=== PATIENT | male | born 1980 | race Caucasian/White ===

== ENCOUNTER 2018-08-02 15:04 | Outpatient (CLI) | payer OTHER | END 2018-08-02 15:05 | disposition home or self-care (01) | LOC: SC 15:04 | PROVIDERS: ATTEND Nurse Practitioner Family | DX: G47.33 Obstructive sleep apnea (adult) (pediatric) (principal); G25.81 Restless legs syndrome; E66.9 Obesity, unspecified; Z68.33 Body mass index [BMI] 33.0-33.9, adult | CPT/HCPCS: 99204; 99212 ==

== ENCOUNTER 2018-09-02 06:01 | Day surgery (SDC) | payer OTHER ==
[2018-09-02] MEDS ORDERED: ceFAZolin 2 GM/50 ML 2 GM/50 ML BAG IV ONE (06:30)
[2018-09-02] MEDS ORDERED: LACTATED RINGERS 1,000 ML IV ONE (06:30)
--- NOTE | 2018-09-02 07:02 | ANESTHESIA ---
Pre-Anesthesia VS, & Labs - Diagnosis right carpal tunnel syndrome - Procedure right carpal tunnel release Vital Signs: Temp Pulse Resp BP Pulse Ox 36.6 C 86 18 135/86 H 97 09/02/18 06:41 09/02/18 06:41 09/02/18 06:41 09/02/18 06:41 09/02/18 06:41 Height 5 ft 5 in Weight (kg) 94.6 kg - NPO >8 hours Home Medications and Allergies Home Medications: Ambulatory Orders Loratadine [Claritin] 10 mg PO DAILY 08/29/18 Sertraline HCl [Zoloft] 100 mg PO DAILY 08/29/18 Loratadine [Claritin] 10 mg PO DAILY 08/29/18 Sertraline HCl [Zoloft] 100 mg PO DAILY 08/29/18 Allergies/Adverse Reactions: Allergies Allergy/AdvReac Type Severity Reaction Status Date / Time No Known Drug Allergies Allergy Verified 08/29/18 12:32 Anes History & Medical History - Anesthetic History Anesthesia Complications: reports: No previous complications Family history of Anesthesia Complications: Denies Family history of Malignant Hyperthermia: Denies - Medical History Cardiovascular: reports: None Pulmonary: reports: Sleep apnea Gastrointestinal: reports: None Urinary: reports: None Musculoskeletal: reports: Other Skin: reports: None - Surgical History General: Cholecystectomy Exam General: Alert Dental: WNL Mouth Openin Fingerbreadth Neck Mobility: Normal Mallampati classification: II Thyromental Distance: greater than 6 cm Respiratory: Lungs clear, Normal breath sounds, No respiratory distress, No accessory muscle use Cardiovascular: Regular rate, Normal S1, Normal S2, No murmurs Mental/Cognitive Status: Alert/Oriented X3, Normal for patient Cognitive Status: Within normal limits Plan Anesthesia Type: General Consent for Procedure(s) Verified and Reviewed: Yes Code Status: Attempt Resuscitation ASA classification: 2-Mild systemic disease Is this case an emergency?: No
[2018-09-02] MEDS ORDERED: BUPIVACAINE 0.25% PF 30 ML VIAL ONE (07:31)
[2018-09-02] MEDS ORDERED: BUPIVACAINE 0.25% PF 30 ML VIAL SUBQ ONE ×2 (08:03)
[2018-09-02] MEDS ORDERED: ONDANSETRON 4 MG/2 ML VIAL IVP PRN (08:43)
[2018-09-02] MEDS ORDERED: HYDROmorphone 0.5 MG/0.5 ML SYRINGE IVP PRN (08:43)
[2018-09-02] MEDS ORDERED: HYDROcod/ACETAM 5/325 MG TABLET PO PRN (08:43)
--- NOTE | 2018-09-02 08:59 | OPERATIVE REPORT ---
Operative Report - General Procedure Date: 09/02/18 Planned Procedure: Right open carpal tunnel release Pre-Op Diagnosis: Right carpal tunnel syndrome Procedure Performed: Right open carpal tunnel release Post Op Diagnosis: Right carpal tunnel syndrome - Procedure Note Primary Surgeon: Garrett Mcgregor MD Secondary Surgeon: Taqueria Melgar MD Anesthesia Technique: General LMA Estimated Blood Loss (mL): 5 - Other Other Information/Narrative: Tourniquet time: 19 minutes at 250 mmHg Findings: Thickened transverse carpal ligament Complications: None Implants: None Indication for surgery: This is a 38-year-old qnsik-arir-kunyzdyb male who experienced approximately 4 months of increasing right hand pain and numbness in a median nerve distribution pain and numbness were worse on the radial side of the ring finger, the long finger with lesser involvement of the index finger and the thumb. His symptoms began following a cross country PCS from [facility] to the [facility]. 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 He was treated by his PCP in late May with a steroid Dosepak, which provided decent relief relief of symptoms, however his symptoms returned shortly after discontinuation of the steroid medication. He reported night pain. He had an EMG/NCS that demonstrated a letter diagnostic findings consistent with bilateral carpal tunnel syndrome. We discussed nonoperative treatment, consisting of night splints, as well as cortical steroid injection into the carpal tunnel, and open carpal tunnel release. We discussed the risks benefits and alternatives to surgery. Risks include failure to relieve symptoms, bleeding, infection, damage to nerves, (recurrent motor branch to the thenar muscles, palmar cutaneous branch of the median and ulnar nerves, the ulnar nerve proper), blood vessels, tendons, blood clot to include DVT and pulmonary embolus, risks of anesthesia, heart attack, stroke, . After long discussion he wished to proceed. Informed consent was signed. Description of procedure: On the morning of surgery the patient was met in the preoperative holding area, informed consent was verified, patient identity was confirmed using 2 identifiers. Initial the operative site. And verified that the history and physical was current. The patient was then turned over to anesthesia, and transported to the operative room. He was transferred to the operative table supine with a right upper extremity on a hand table. A nonsterile tourniquet was placed high on the right brachium. The right arm was prepped and draped in usual sterile fashion. Following draping of surgical timeout was conducted whereby we confirmed the correct patient procedure and location as well as preoperative antibiotics and all equipment. The right upper extremity was then examination with an Esmarch bandage and the tourniquet was raised to 250 mmHg. Approximately 2.5 cm incision was made longitudinally distal to the wrist crease in line with the ulnar border of the flexed ring finger. Subcutaneous tissue was dissected sharply and retracted ulnarly, to the level of the palmar fascia. This palmar fascia was sharply incised, revealing the transverse carpal ligament. The transverse carpal ligament was sharply incised, revealing the contents of the carpal tunnel. The transverse carpal ligament was released proximally, with release of approximately 2 cm of the antebrachial fascia, and then distally until the fat surrounding the superficial palmar arch was seen. The extent of the incision was probed, and found to be free of any constrictive bands. Wound was copiously irrigated. The tourniquet was let down. Hemostasis was ensured using bipolar electrocautery. The wound was then closed using 4-0 Prolene in interrupted horizontal mattress fashion. 10 mL's of 0.25% Marcaine were injected into the lyndon-incisional soft tissue. The wound was dressed with Xeroform, 4 x 4 gauze, web roll, and a volar plaster splint splint was placed. Anesthesia was reversed and the patient transferred back to the hospital but bed and taken to the postoperative recovery area in stable condition. Postoperative plan: Splint and elevate Splint to be taken down at first postop visit in approximately 10 days. We will begin gentle range of motion of the wrist following splint removal.
[2018-09-02 09:36] VITALS: BP 120/82
== END 2018-09-02 06:02 | disposition home or self-care (01) ==
LOC: SDS 06:01
PROVIDERS: ATTEND Orthopaedic Surgery
PROC: 01N50ZZ Release Median Nerve, Open Approach (ICD-10-PCS; principal; 2018-09-02 07:30)
DX: G56.01 Carpal tunnel syndrome, right upper limb (principal); G47.30 Sleep apnea, unspecified; F41.8 Other specified anxiety disorders; Z79.891 Long term (current) use of opiate analgesic
CPT/HCPCS: 64721; J0690; J7120

== ENCOUNTER 2018-09-21 15:42 | Outpatient (CLI) | payer OTHER | END 2018-09-21 15:43 | disposition home or self-care (01) | LOC: SC 15:42 | PROVIDERS: ATTEND Nurse Practitioner Family | DX: G47.33 Obstructive sleep apnea (adult) (pediatric) (principal) | CPT/HCPCS: 99212; 99214 ==

== ENCOUNTER 2019-10-24 15:35 | Outpatient (CLI) | payer OTHER ==
[2019-10-24 16:42] VITALS: BP 120/84
--- NOTE | 2019-10-24 16:42 | SLEEP CARE CONSULTATION ---
Information from patient questionnaire entered by Josette Christian. I have reviewed and concur with the information entered by Josette Christian. This document represents the service I personally performed and the decisions made by me, Violetta Marsh, RN, MSN, BODY SERVICE TEAM MEMBER. History of Present Illness Previous diagnosis: Mild, Obstructive Sleep Apnea-Hypopnea Syndrome AHI: 6 Reason for follow up: annual (last seen 2018) Equipment type: CPAP Equipment obtained from: [employer] Mask style: Nasal pillows Mask brand: Resmed Backup mask available: Yes Last cushion change: 3 weeks ago CPAP Compliance Data - Data Reviewed with Patient Average duration of nightly device use: 7.5 Compliance rate %: 94 (180 days) Current pressure setting (cmH2O): 5-15 Humidity settin Average residual AHI: 3.5 Average large leak: 8.5 liters per minute Subjective Missed days of use due to: reports: illness Patient concerns: denies: aerophagia, mask discomfort, air blowing in eyes, mask leak noise, condensation in mask/hose, nasal congestion, dry mouth, nose, throat, epistaxis Observed to snore while using device: No Current pressure setting perceived as: comfortable On therapy, patient: reports: sleeping better, awakening more refreshed, being more awake and alert during the day, more rested overall. denies: drowsiness while driving Initial [place] Sleepiness Scale score: 9 Current [place] Sleepiness Scale score: 7 Allergies and Home Medications Known drug allergies: No Home medication list reviewed: Yes Allergy and home medication list: Sertraline 100mg daily loratadine 10mg daily Review of Systems Review of systems same as previous: Yes Physical Exam Blood Pressure: 120/84 Cuff size: long Heart Rate: 66 O2 Saturation: 98 Height: 5 ft 5.5 in Weight: 229 lb 12.8 oz Body Mass Index: 37.6 BMI Classification: Obesity Class 2 Impression and Plan 1. Obstructive Sleep Apnea-Hypopnea Syndrome, mild , with good treatment compliance and good apnea control. On CPAP therapy, the patient has better sleep quality and is more rested overall. However, there have been intermittent periods of higher apnea range for unknown reason. Patient denies taking alcohol, pain med or musle relaxant that could contribute to elevation. Thus with his weight gain, I will adjust his autoCPAP to [id number] to see if any better. I also discussed how his weight gain could increase apnea risk and pressure requirement and overall health risks. Thus he is advised to lose weight with reducing portions, health content and tracking intake. If not able to get to his weight loss goal to discuss with PCP to see if diet consultation would be helpful. There are also programs such as weight watchers that can be helpful. Patient's apnea severity and rationale for treatment to reduce apnea, improve sleep quality and reduce cardiovascular and cerebrovascular events was reviewed. I also reviewed the benefit of consistent device use of CPAP for depression/anxiety. * * Change CPAP pressure to 8-15 cmH2O * Notify me if snoring with mask or feeling that the pressure is too much or too little * Attempt to lose weight * Call this office if any problems using CPAP * Return for follow up in 1 year , or sooner if concerns arise Time Spent with Patient (minutes): 25 I spent 100% of this visit face to face with the patient with greater than 50% of this was spent time counseling the patient and coordination of care.
== END 2019-10-24 15:36 | disposition home or self-care (01) ==
LOC: SC 15:35
PROVIDERS: ATTEND Nurse Practitioner Family
DX: G47.33 Obstructive sleep apnea (adult) (pediatric) (principal); E66.9 Obesity, unspecified; Z68.37 Body mass index [BMI] 37.0-37.9, adult
CPT/HCPCS: 99212; 99214

== ENCOUNTER 2020-07-17 19:43 | Emergency (ER) | payer OTHER ==
[2020-07-17 19:48] VITALS: BP 127/85
--- NOTE | 2020-07-17 20:12 | ED Physician Documentation ---
PD HPI SKIN - Stated complaint Stated Complaint: FINGER LAC - Chief complaint Chief Complaint: Laceration - History obtained from History obtained from: Patient - Additional information Additional information: pt was taking out the trash and pushed down to pack the bag in and cut his right small finger on a tin can lid. cleaned and dressed at home by who is an RN. pt unsure of last td but believes it was within the past 5 years. normal movement and sensation of the finge.r PD PAST MEDICAL HISTORY - Past Medical History Cardiovascular: None Respiratory: Sleep apnea, CPAP use Neuro: None Endocrine/Autoimmune: None GI: GERD : None HEENT: None Psych: Depression Musculoskeletal: None, Other Derm: None - Past Surgical History General: Cholecystectomy Ortho: Carpal Tunnel surgery - Present Medications Home Medications: Ambulatory Orders Medication Instructions Recorded Confirmed Sertraline HCl [Zoloft] 100 mg PO DAILY 08/29/18 09/02/18 Omeprazole 40 mg PO 03/26/20 - Allergies Allergies/Adverse Reactions: Allergies Allergy/AdvReac Type Severity Reaction Status Date / Time No Known Drug Allergies Allergy Verified 03/26/20 13:23 PD ED PE NORMAL - Vitals Vital signs reviewed: Yes - General General: Alert and oriented X 3, No acute distress, Well developed/nourished - Derm Derm: Normal color, Warm and dry, No rash, Other (1.5cm lac palmar surface right small finger, mid) - Extremities Extremities: No deformity, No tenderness to palpate, Normal ROM s pain, No edema - Neuro Neuro: Alert and oriented X 3 Eye Opening: Spontaneous Motor: Obeys Commands Verbal: Oriented GCS Score: 15 - Psych Psych: Normal mood, Normal affect Results - Vitals Vitals: Vital Signs - 24 hr 07/17/20 19:44 Temperature 2.3 C L Heart Rate 55 L Respiratory 16 Rate Blood Pressure 127/85 H O2 Saturation 96 Oxygen O2 Source Room air Procedures - Laceration (location) Hand right Palmar Length in cm: 1.5 Wound type: Linear Neurovascular status: Sensory intact, Motor intact, Vascular intact Tendon involvement: Tendon intact Anesthesia: Lidocaine 1% Wound Preparation: Irrigated copiously NS Skin layer closure: Nylon, Interrupted, Sutures - enter # (5) Other: Patient tolerated well, No complications, Neurovascular intact, Dressing applied, Tetanus UTD Complexity: Simple PD MEDICAL DECISION MAKING - ED course Complexity details: d/w patient ED course: Pt sustained small lac to right small finger. offered glue vs dressing vs sutures and pt elected for sutures. obtained informed verbal consent. site cleaned and closed w/ five #4.0 interrupted sutures. covered w/ dressing. tolerated well. pt to have sutures removed in 7-10 days. return precautions reviewed w/ pt. Departure - Departure Disposition: 01 Home, Self Care Clinical Impression: Laceration Condition: Good Instructions: ED Laceration Hand Comments: Please have sutures removed in 7-10 days. Return at anytime if signs of infection. Discharge Date/Time: 07/17/20 20:28
== END 2020-07-17 20:28 | disposition home or self-care (01) ==
LOC: ED 19:43
DX: S61.216A Laceration without foreign body of right little finger without damage to nail, initial encounter (principal); W26.8XXA Contact with other sharp object(s), not elsewhere classified, initial encounter; Y93.E9 Activity, other interior property and clothing maintenance
CPT/HCPCS: 12001; 99281; 99282

== ENCOUNTER 2020-10-16 16:46 | Outpatient (CLI) | payer OTHER ==
--- NOTE | 2020-10-16 13:57 | SLEEP CARE CONSULTATION ---
Information from patient questionnaire entered by Josette Christian. I have reviewed and concur with the information entered by Josette Christian. This document represents the service I personally performed and the decisions made by me, Violetta Marsh, RN, MSN, L[employer]END[employer] WORKER. History of Present Illness Service Date and Time: 10/16/2020 1330 Previous diagnosis: Mild, Obstructive Sleep Apnea-Hypopnea Syndrome AHI: 6 (in 2013) Reason for follow up: annual (last seen 09/2019) Equipment type: CPAP Equipment obtained from: Other ([employer] - gets supplies as neede) Mask style: Nasal pillows Backup mask available: Yes (old mask ) Last cushion change: a week ago Prior sleep studies: Yes Year and Where: 2013 - [facility] in [facility] additional information: Previous annual visit reviewed in preparation for appointment. The autoCPAP pressure was not changed as ordered. CPAP Compliance Data - Data Reviewed with Patient Average duration of nightly device use: 7 hr 4 min Compliance rate %: 91.1 (180 days) Current pressure setting (cmH2O): 5-15 Humidity settin Average residual AHI: 2.9 Subjective Patient concerns: reports: condensation in mask/hose (rare a few times a year). denies: aerophagia, mask discomfort, air blowing in eyes, mask leak noise, nasal congestion, dry mouth, nose, throat, epistaxis Observed to snore while using device: No Current pressure setting perceived as: comfortable On therapy, patient: reports: sleeping better, awakening more refreshed, being more awake and alert during the day, more rested overall. denies: drowsiness while driving Initial [place] Sleepiness Scale score: 9 (in 2018) Current [place] Sleepiness Scale score: 3 Allergies and Home Medications Known drug allergies: No Home medication list reviewed: Yes Allergy and home medication list: Zoloft 100mg daily Aciphex 20mg daily Ropinerol 3mg daily Review of Systems Review of systems same as previous: Yes Physical Exam Height: 5 ft 5 in Weight: 220 lb Body Mass Index: 36.6 BMI Classification: Obese Impression and Plan 1. Obstructive Sleep Apnea-Hypopnea Syndrome, mild, with good treatment compliance and good apnea control. On CPAP therapy, the patient has better sleep quality and is more rested overall. Patient is pleased with benefit of CPAP treatment. Currently patients BMI is 37.8 obesity class . I reviewed how obesity increases the risk of apnea, CPAP pressure requirements and overall health risks especially cardiovascular and diabetes. Thus patient is advised to lose weight. Weight loss can be done with reducing portion size, reducing refined foods and balancing content with vegetables, fruit and protein. Patient encouraged to discuss their weight loss goals with their PCP and consider a referral to a porcelain mixer. The patient's CPAP pressure range should accommodate some weight loss. Symptoms to report for additional pressure adjustment discussed. Patient's apnea severity and rationale for treatment to reduce apnea, improve sleep quality and reduce cardiovascular and cerebrovascular events was reviewed. I also reviewed the benefit of consistent device use of CPAP for depression/anxiety. 2. Restless leg syndrome, currently managed by his PCM and treated with Ropinerol nightly. Patient reports difficulty sleeping about 1-2 times a month when symptoms exacerbate. No trigger is noted. He is advised to consider an Epsom salt bath at this time. If symptoms increase, he should follow up with PCM for medication modification and to check if iron deficiency with rationale discussed. Patient agreed with plan. * Continue auto CPAP pressure at 5-15 cmH2O * Notify me if snoring with mask or feeling that the pressure is too much or too little * Attempt to lose weight * Follow up with PCP for referral to porcelain mixer * Call this office if any problems using CPAP * Return for follow up in 1 year , or sooner if concerns arise Counseling Topics: Weight loss health impact, Discuss weight with PCP Visit Type: Telehealth Video Video Type: Doximity Patient Location: Home Location of Provider: Home Patient agrees and consents to this telehealth visit type: Yes Patient agrees to have their insurance billed: Yes Time Spent with Patient (minutes): 16 Provider Statement: I spent 100% of the Telehealth Video Call with the patient with greater than 50% spent counseling the patient and coordination of care.
== END 2020-10-16 16:47 | disposition home or self-care (01) ==
LOC: SC 16:46
PROVIDERS: ATTEND Nurse Practitioner Family
DX: G47.33 Obstructive sleep apnea (adult) (pediatric) (principal); G25.81 Restless legs syndrome; E66.9 Obesity, unspecified; Z68.36 Body mass index [BMI] 36.0-36.9, adult

== ENCOUNTER 2021-12-12 08:35 | Outpatient (CLI) | payer OTHER ==
[2021-12-12 09:01] VITALS: BP 153/76
--- NOTE | 2021-12-12 09:01 | SLEEP CARE CONSULTATION ---
Information from patient questionnaire entered by Rachel Daniels MA. I have reviewed and concur with the information entered by Rachel Daniels MA. This document represents the service I personally performed and the decisions made by , Sera Olguin ARNP. History of Present Illness Service Date and Time: 12/12/2021 0835 Previous diagnosis: Mild, Obstructive Sleep Apnea-Hypopnea Syndrome AHI: 6 (in 2013) Reason for follow up: annual (LAST SEEN 09/2020) Equipment type: CPAP Equipment obtained from: Other ([employer] - getting supplies as needed) Mask style: Nasal pillows Backup mask available: Yes (old mask) Last cushion change: last week Prior sleep studies: Yes Year and Where: [address] [place] [address] HPI additional information: DOMINIQUE RAMOS was diagnosed to have mild, AHI 6, obstructive sleep apnea-hypopnea syndrome and returned today for CPAP therapy annual follow-up. Sleep Study - Results Prior sleep studies: Yes Year and Where: [address] [place] [address] CPAP Compliance Data - Data Reviewed with Patient Average duration of nightly device use: 7 hours 15 minutes Compliance rate %: 98 Current pressure setting (cmH2O): 5-15 Average residual AHI: 4.2 Central apnea: 2.4 Obstructive apnea: 1.1 Subjective Patient concerns: denies: aerophagia, mask discomfort, air blowing in eyes, mask leak noise, condensation in mask/hose, nasal congestion, dry mouth, nose, throat, epistaxis Observed to snore while using device: No Current pressure setting perceived as: comfortable On therapy, patient: reports: sleeping better, awakening more refreshed, being more awake and alert during the day, more rested overall. denies: drowsiness while driving Initial [place] Sleepiness Scale score: 9 (in 2018) Current [place] Sleepiness Scale score: 8 Allergies and Home Medications Drug allergies reviewed: Yes (NKDA) Home medication list reviewed: Yes Allergy and home medication list: Allergies No Known Drug Allergies Allergy (Verified 03/26/20 13:23) Medications: stopped Zoloft Started Wellbutrin Review of Systems Review of systems same as previous: Yes (no changes) Physical Exam Blood Pressure: 153/76 (right) Cuff size: wrist Heart Rate: 56 O2 Saturation: 96 Height: 5 ft 5 in Weight: 226 lb Weight change since last visit: 6 lb gain Body Mass Index: 37.5 BMI Classification: Obese Impression and Plan 1. Obstructive Sleep Apnea-Hypopnea Syndrome, mild, with good treatment compliance and good apnea control. On CPAP therapy, the patient has better sleep quality and is more rested overall. Is satisfied with current CPAP therapy and has significant improvement of his sleep apnea. He denies any problems with skin irritation, dry mouth, nasal congestion or epistaxis. Patient's apnea severity and rationale for treatment to reduce apnea, improve sleep quality and reduce cardiovascular and cerebrovascular events was reviewed. I also reviewed the benefit of consistent device use of CPAP for depression, anxiety and RLS. 2. Obesity, unspecified. Patient has gained weight. Currently patients BMI is 37.5. Patient is currently trying a diet that he obtained when he was looking into having bariatric surgery.This plan has been on hold due to the Covid pandemic. Obesity increases the risk of apnea, CPAP pressure requirements and overall health risks especially cardiovascular and diabetes. Thus patient is advised to continue to try to lose weight. Weight loss can be done with reducing portion size, reducing refined foods and balancing content with vegetables, fruit and whole grain foods. In addition, patient encouraged to get regular exercise. The patient's CPAP pressure range should accommodate some weight loss. Symptoms to report for additional pressure adjustment discussed. * Continue auto CPAP pressure at 5-15 cmH2O * Notify me if snoring with mask or feeling that the pressure is too much or too little * Continue to try to lose weight * Call this office if any problems using CPAP * Return for follow up in 1 year, or sooner if concerns arise Counseling Topics: Spare mask, Weight loss health impact Visit Type: In Office Time Spent with Patient (minutes): 14 Provider Statement: I spent 100% of the Face to Face Visit with the patient with greater than 50% spent counseling the patient and coordination of care.
== END 2021-12-12 08:36 | disposition home or self-care (01) ==
LOC: SC 08:35
PROVIDERS: ATTEND Nurse Practitioner Family
DX: G47.33 Obstructive sleep apnea (adult) (pediatric) (principal); E66.9 Obesity, unspecified; Z68.37 Body mass index [BMI] 37.0-37.9, adult
CPT/HCPCS: 99212

== ENCOUNTER 2021-12-27 14:20 | Emergency (ER) | payer OTHER ==
--- NOTE | 2021-12-27 14:27 | ED Physician Documentation ---
PD HPI LOWER EXT INJURY - Stated complaint Stated Complaint: RT CALF PX - Chief complaint Chief Complaint: Back Pain - History obtained from History obtained from: Patient - History of Present Illness PD HPI LOW EXT INJURY LOCATION: Right, Calf Type of injury: No: Fall, Twist Where injury occurred: Home (onset of right calf pain last night during night, associated with his "restless legs", but cramping pain has persisted through day today. Pain with movement and walking. No edema of lower leg. No numbness in foot.) Timing - onset: Today, Last night Timing - duration: Hours Timing - details: Gradual onset, Still present, Waxing and waning (has not gone away with stretching, warm soak, rest, elevation.) Improved by: No: Rest Worsened by: Moving, Palpating (right upper lateral calf.) Associated symptoms: No: Weakness, Numbness, Swelling, Discolored Contributing factors: No: Anticoagulated Similar symptoms before: No diagnosis (He has had intermittent muscle cramps during the night. He has restless legs at night as well. He has not had a "charley horse" last this long in the past. He denies pain with activity or working out in the recent past.) Recently seen: Not recently seen Review of Systems Constitutional: denies: Fever, Chills Nose: denies: Rhinorrhea / runny nose, Congestion Throat: denies: Sore throat Respiratory: denies: Cough Skin: denies: Rash, Lesions Musculoskeletal: denies: Extremity swelling Neurologic: denies: Focal weakness, Numbness PD PAST MEDICAL HISTORY - Past Medical History Cardiovascular: None Respiratory: Sleep apnea, CPAP use Neuro: None Endocrine/Autoimmune: None GI: GERD : None HEENT: None Psych: Depression Musculoskeletal: Other (restless legs) Derm: None - Past Surgical History General: Cholecystectomy Ortho: Carpal Tunnel surgery - Present Medications Home Medications: Ambulatory Orders Medication Instructions Recorded Confirmed Sertraline HCl [Zoloft] 100 mg PO DAILY 08/29/18 09/02/18 Omeprazole 40 mg PO 03/26/20 tiZANidine [Zanaflex] 4 mg PO Q8H PRN #25 tablet 12/27/21 - Allergies Allergies/Adverse Reactions: Allergies Allergy/AdvReac Type Severity Reaction Status Date / Time No Known Drug Allergies Allergy Verified 12/27/21 14:26 PD ED PE NORMAL - Vitals Vital signs reviewed: Yes - General General: Alert and oriented X 3, No acute distress, Well developed/nourished - Back Back: No CVA TTP, No spinal TTP - Derm Derm: Normal color, Warm and dry, No rash - Extremities Extremities: No tenderness to palpate, Normal ROM s pain, No edema, Other (He has tenderness in the right upper lateral calf muscle. No obvious softness nor firmness. Passive range of motion causes some pain in that area. Lower calf and Achilles are nontender. Normal pulses and capillary refill in the foot and toes.) - Neuro Neuro: Alert and oriented X 3, No motor deficit, No sensory deficit, Normal speech Results - Vitals Vitals: Vital Signs - 24 hr 12/27/21 12/27/21 14:22 16:28 Temperature 36.1 C L 36.7 C Heart Rate 55 L 78 Respiratory 16 17 Rate Blood Pressure 133/82 H 134/69 H O2 Saturation 98 99 Oxygen O2 Source Room air - Labs Labs: Laboratory Tests 12/27/21 14:54 Sodium 138 Potassium 4.1 Chloride 104 Carbon Dioxide 25 Anion Gap 9.0 BUN 22 H Creatinine 1.0 Estimated GFR (MDRD) 82 L Glucose 101 H Calcium 9.4 Magnesium 2.1 Total Bilirubin 1.2 H AST 22 ALT 36 Alkaline Phosphatase 48 Total Creatine Kinase 299 H Total Protein 7.6 Albumin 4.6 Globulin 3.0 Albumin/Globulin Ratio 1.5 Lipase 34 - Rads (name of study) duplex right leg Radiology: Prelim report reviewed, See rad report PD MEDICAL DECISION MAKING - ED course Complexity details: reviewed results, considered differential (No noted injury. No edema in the lower leg. No numbness or weakness. He does workout regularly without recent pains on activity or walking. Seems likely muscle cramp or spasm. However can get ultrasound to evaluate DVT. Blood tests for electrolytes. CK 2 evaluate for significant muscle breakd), d/w patient Departure - Departure Disposition: 01 Home, Self Care Clinical Impression: Right calf pain Condition: Stable Record reviewed to determine appropriate education?: Yes Instructions: ED Strain Muscle Ext Prescriptions: tiZANidine [Zanaflex] 4 mg PO Q8H PRN #25 tablet PRN Reason: Spasms Comments: Your ultrasound is normal without any signs of blood clots. They did not see any other structural abnormality such as a cyst or hematoma. Your electrolytes are good on blood testing. A blood test called this creatinine kinase is slightly elevated suggesting some mild muscle injury. It does not seem elevated enough nor your symptoms to suggest excess pressure in the calf (compartment syndrome). At this point we will presume a muscle strain with some inflammation. Use some anti-inflammatory such as ibuprofen 2-3 times daily with food for the next several days to week. Heat and stretching for the muscle. Add Tylenol every 4- 6 hours if needed for pain. You could also consider adding tizanidine muscle relaxant if you are getting a lot of cramps or spasms. Activity as tolerated. Recheck if not improved well over the next several days to week. Discharge Date/Time: 12/27/21 16:28
[2021-12-27] MEDS ORDERED: ACETAMINOPHEN 325 MG TABLET PO STA (14:39)
[2021-12-27] MEDS ORDERED: IBUPROFEN 800 MG TABLET PO STA (14:39)
[2021-12-27] MEDS ORDERED: methocarbamoL 500 MG TABLET PO STA (14:39)
[2021-12-27 15:11] LABS: ALBUMIN 4.6 g/dL (3.2-5.5); ALBUMIN/GLOBULIN RATIO 1.5 (1.0-2.2); BILIRUBIN,TOTAL 1.2 mg/dL (0.2-1.0); CALCIUM 9.4 mg/dL (8.5-10.3); MAGNESIUM 2.1 mg/dL (1.7-2.8); POTASSIUM 4.1 mmol/L (3.5-5.0); TOTAL PROTEIN 7.6 g/dL (6.7-8.2)
--- NOTE | 2021-12-27 16:17 | Ultrasound Report ---
PROCEDURE: Duplex Ext Veins Right INDICATIONS: calf pain today without provocation TECHNIQUE: Real-time imaging, as well as color and pulse Doppler interrogation, were performed of the lower extr emity deep veins from the inguinal ligament to the popliteal fossa. COMPARISON: None. FINDINGS: The deep veins are normally compressible, and free of intraluminal thrombus. Color and pu lse Doppler demonstrate normal phasic intraluminal flow. There is normal augmentation response to di stal compression maneuver. IMPRESSION: Negative right lower extremity duplex ultrasound for DVT. Reviewed by: Luis Enrique Davies MD on 12/27/2021 3:15 PM [facility] Approved by: Luis Enrique Davies MD on 12/27/2021 3:15 PM [facility] Station ID: [id number]
[2021-12-27 16:30] VITALS: BP 134/69
== END 2021-12-27 16:28 | disposition home or self-care (01) ==
LOC: ED 14:20
DX: M79.661 Pain in right lower leg (principal); G25.81 Restless legs syndrome
CPT/HCPCS: 36415; 80053; 82550; 83690; 83735; 93971; 99282; 99284; A9270

== ENCOUNTER 2022-05-18 06:48 | Emergency (ER) | payer OTHER ==
[2022-05-18 06:55] VITALS: BP 146/81
--- NOTE | 2022-05-18 07:03 | ED Physician Documentation ---
PD HPI MALE - Stated complaint Stated Complaint: PAIN/MALE - Chief complaint Chief Complaint: General - History obtained from History obtained from: Patient - History of Present Illness Timing - onset: How many days ago (2) Timing - duration: Days (2) Timing - details: Abrupt onset, Still present (though has gotten smaller today, but still uncomfortable to touch in the area.) Associated symptoms: Testiclar pain (lower left testicle started 2 days ago. No noted injury.). No: Dysuria, Urinary frequency, Genital sore / lesion PD HPI MALE CONTRIB FACTORS: Sexually active Similar symptoms before: Has not had sx before Recently seen: Clinic (had COVID mild symptoms 2 months ago.), Other (Telehealth consultation for diffuse itchy skin rash last week, for pruritic hives rash he has had without noted provocation. Rx clobetasole cream topical.) Review of Systems Constitutional: denies: Fever, Chills Nose: denies: Rhinorrhea / runny nose, Congestion Throat: denies: Sore throat Respiratory: denies: Cough : denies: Dysuria, Frequency, Discharge Skin: reports: Rash (hives/itching rash diffusely for a week. No change in foods, soaps, contacts, meds, etc.) PD PAST MEDICAL HISTORY - Past Medical History Cardiovascular: None Respiratory: Sleep apnea, CPAP use Neuro: None Endocrine/Autoimmune: None GI: GERD : None HEENT: None Psych: Depression Musculoskeletal: Other (restless legs) Derm: None - Past Surgical History General: Cholecystectomy Ortho: Carpal Tunnel surgery - Present Medications Home Medications: Ambulatory Orders Medication Instructions Recorded Confirmed Sertraline HCl [Zoloft] 100 mg PO DAILY 08/29/18 09/02/18 Omeprazole 40 mg PO 03/26/20 tiZANidine [Zanaflex] 4 mg PO Q8H PRN #25 tablet 12/27/21 Cetirizine [ZyrTEC] 10 mg PO BID #20 tablet 05/18/22 dexAMETHasone [Decadron] 4 mg PO DAILY #5 tablet 05/18/22 - Allergies Allergies/Adverse Reactions: Allergies Allergy/AdvReac Type Severity Reaction Status Date / Time No Known Drug Allergies Allergy Verified 05/18/22 06:55 - Social History Does the pt smoke?: No Smoking Status: Never smoker PD ED PE NORMAL - Vitals Vital signs reviewed: Yes - HEENT HEENT: Pharynx benign - Neck Neck: Supple, no meningeal sign, No adenopathy - Cardiac Cardiac: RRR, No murmur - Respiratory Respiratory: Clear bilaterally - Abdomen Abdomen: Soft, Non tender - Male Male : Other (no hernias. No inguinal adenopathy. ) - Rectal Rectal: Deferred - Back Back: No CVA TTP - Derm Derm: Warm and dry, Other (blotchy minimally raised/pebbly rash on torso/whole body. Nonvesicular. No purpura. ) PD ED PE EXPANDED - Male Male : Testes descended maci, Normal lie/cremastaric, Tenderness (mild tender lower pole of left testicle with slight fullness felt in the area. ). No: Skin lesions, Discharge, Testicular Mass (there is mild lump felt bilateral mid vas area c/w prior vasectomy. ) Results - Vitals Vitals: Vital Signs - 24 hr 05/18/22 06:53 Temperature 36.2 C L Heart Rate 64 Respiratory 18 Rate Blood Pressure 146/81 H O2 Saturation 96 Oxygen O2 Source Room air - Labs Labs: Laboratory Tests 05/18/22 07:29 Urine Color DARK YELLOW Urine Clarity CLEAR Urine pH 5.0 Ur Specific [place] >=1.030 H Urine Protein NEGATIVE Urine Glucose (UA) NEGATIVE Urine Ketones NEGATIVE Urine Occult Blood MODERATE H Urine Nitrite NEGATIVE Urine Bilirubin NEGATIVE Urine Urobilinogen 0.2 (NORMAL) Ur Leukocyte Esterase NEGATIVE Urine RBC 0-5 Urine WBC 0-3 Ur Squamous Epith Cells RARE Squamous Urine Bacteria Rare Ur Microscopic Review INDICATED Urine Culture Comments NOT INDICATED - Rads (name of study) testicle/scrotal US Radiology: Prelim report reviewed (Mild increased vascularity in the left testicle and epididymal area. No obvious structural abnormality.), See rad report PD MEDICAL DECISION MAKING - ED course Complexity details: reviewed results, considered differential (consider possible hydrocele lower pole testicle. Can get US to evaluate. He has diffuse hives for a week, which I think is unrelated. But can Rx with oral steroids and H2 gerda. ), d/w patient Departure - Departure Disposition: 01 Home, Self Care Clinical Impression: Lump in scrotum, Hives Condition: Stable Record reviewed to determine appropriate education?: Yes Prescriptions: dexAMETHasone [Decadron] 4 mg PO DAILY #5 tablet Cetirizine [ZyrTEC] 10 mg PO BID #20 tablet Comments: Your ultrasound does not show any obvious notable abnormality. They did say there is perhaps some mild increased vascularity out of the left testicle which can suggest some inflammation. I presume your lump had been a collection of fluid either from the blood vessel or the vas deferens (varicocele or hydrocele) that is now resolving. There can be some residual inflammation and tenderness for couple of days. No other structural abnormality seen on ultrasound. Regarding your hives rash, I would suggest cetirizine antihistamine twice daily for the next several days or so and then daily for another week or 2. Additionally Decadron oral steroid to treated throughout your system. I would anticipate improvement in this over the next few days and stay resolved. If you have persistent or recurrent hives with this, then follow-up with your primary care for consideration of more specific allergy testing to see what you are continuing to be exposed to.
[2022-05-18] MEDS ORDERED: CETIRIZINE 10 MG TABLET PO STA (07:24)
[2022-05-18] MEDS ORDERED: DEXAMETHASONE 10 MG/ML VIAL PO STA (07:24)
[2022-05-18] MEDS ORDERED: CHERRY SYRUP 10 ML UDC PO ONE (07:24)
[2022-05-18 07:33] LABS: BILIRUBIN,URINE NEGATIVE (NEGATIVE); GLUCOSE, URINE (UA) NEGATIVE (NEGATIVE); KETONES,URINE (UA) NEGATIVE (NEGATIVE); LEUKOCYTE ESTERASE, URINE NEGATIVE (NEGATIVE); NITRITE,URINE NEGATIVE (NEGATIVE); OCCULT BLOOD,URINE MODERATE (NEGATIVE); PROTEIN,URINE NEGATIVE (NEGATIVE); UROBILINOGEN,URINE 0.2 (NORMAL) E.U./dL (NORMAL)
[2022-05-18 07:36] LABS: CLARITY,URINE CLEAR (CLEAR)
[2022-05-18 07:58] LABS: RBC,URINE 0-5 /HPF (0-5); SQUAMOUS EPITHELIAL CELL,UR RARE Squamous (<= Few); WBC,URINE 0-3 /HPF (0-3)
[2022-05-18 07:59] LABS: BACTERIA,URINE Rare /HPF (None Seen)
--- NOTE | 2022-05-18 09:14 | Ultrasound Report ---
PROCEDURE: Testicle w/Doppler INDICATIONS: left testicle/scrotal lump 2 days, now just tender TECHNIQUE: Real-time scanning was performed of the scrotum and testicles, with image documentation. Color and p ulse Doppler interrogation was performed of both testicles. COMPARISON: None. FINDINGS: Right: Testicle is normal in size at 4.0 x 2.2 x 2.6 cm, and homogenous in echotexture. Epididymis is normal in overall size and morphology. Small right hydrocele. No varicocele. Overlying scrotal ski n is normal in thickness. Left: Testicle is normal in size at 4.2 x 2.2 x 2.8 cm, and homogeneous in echotexture. Epididymis is heterogeneous with increased vascularity. No hydrocele or varicoceles. Overlying scrotal skin is normal in thickness. Doppler: Color and pulse Doppler demonstrate normal and symmetric arterial flow in both testicles. IMPRESSION: Left-sided epididymal heterogeneity and increased vascularity are suspicious for epididymitis. Recomm end correlation with clinical findings. No scrotal mass. No signs of testicular torsion. Reviewed by: Demetri De Oliveira MD on 05/18/2022 9:13 AM PDT Approved by: Demetri De Oliveira MD on 05/18/2022 9:13 AM PDT Station ID: [id number]
== END 2022-05-18 08:48 | disposition home or self-care (01) ==
LOC: ED 06:48
DX: N50.9 Disorder of male genital organs, unspecified (principal); L50.9 Urticaria, unspecified
CPT/HCPCS: 76870; 81001; 93975; 99283; 99284; A9270; 81003; 87086

== ENCOUNTER 2022-12-11 09:25 | Outpatient (CLI) | payer OTHER ==
[2022-12-11 09:53] VITALS: BP 112/72
--- NOTE | 2022-12-11 09:53 | SLEEP CARE CONSULTATION ---
Information from patient questionnaire entered by Nichelle Bland. I have reviewed and concur with the information entered by Nichelle Bland. This document represents the service I personally performed and the decisions made by me, Sera Olguin ARNP. History of Present Illness Service Date and Time: 12/11/2022 09 Previous diagnosis: Mild, Obstructive Sleep Apnea-Hypopnea Syndrome AHI: 6 (in 2013) Reason for follow up: annual (LAST SEEN 11/2021) Equipment type: CPAP (RESMED Airsense 10 s/u 12/2017) Equipment obtained from: Other ([employer] - getting supplies as needed) Mask style: Nasal pillows Backup mask available: Yes (old mask) Last cushion change: last week Prior sleep studies: Yes Year and Where: [address] [place] [address] HPI additional information: DOMINIQUE RAMOS was diagnosed to have mild, AHI 6, obstructive sleep apnea-hypopnea syndrome and returned today for CPAP therapy annual follow-up. Sleep Study - Results Prior sleep studies: Yes Year and Where: [address] [place] [address] CPAP Compliance Data - Data Reviewed with Patient Average duration of nightly device use: 7 HRS 27 MIN Compliance rate %: 99 (06/13/2022-12/09/2022; 178/180 days used) Current pressure setting (cmH2O): 8-9 (avg 8.9, max 9.0) Average residual AHI: 5.6 Central apnea: 3.8 Obstructive apnea: 1.0 Hypopnea: 0.7 Subjective Missed days of use due to: reports: travel Patient concerns: reports: other (occasional (1-2 monthly) headache to migraines) Observed to snore while using device: No Current pressure setting perceived as: comfortable On therapy, patient: reports: sleeping better, awakening more refreshed, being more awake and alert during the day, more rested overall. denies: drowsiness while driving Initial [place] Sleepiness Scale score: 9 (in 2018) Current [place] Sleepiness Scale score: 5 (12/11/22) Allergies and Home Medications Drug allergies reviewed: Yes (NKDA) Home medication list reviewed: Yes (no changes) Review of Systems Review of systems same as previous: Yes (no changes) Physical Exam Vital signs obtained and entered by: NICHELLE Walsh MA Blood Pressure: 112/72 (LEFT ARM) Cuff size: long Heart Rate: 54 O2 Saturation: 97 Height: 5 ft 5 in Weight: 227 lb 3.2 oz Body Mass Index: 37.8 BMI Classification: Obese Impression and Plan 1. Obstructive Sleep Apnea-Hypopnea Syndrome, mild, with good treatment compliance and good apnea control with minimal elevation of residual AHI. On CPAP therapy, the patient has better sleep quality and is more rested overall. The patients pressure will be changed to autoCPAP 8-9.6 cmH20 for elevation of residual AHI. Patient advised to contact me if pressure change is uncomfortable so that it can be adjusted. Goals for apnea control discussed. Patient would also like to purchase a travel CPAP and I will write prescription for him to be able to obtain one. He knows insurance does not pay for the travel machines. His [employer] Airsense 10 was last updated in December 2017. He would like to update his device. The patients CPAP is about 5 years old and of reasonable use. Thus, the CPAP will be updated. A DWO prescription will be made. Compliance guidelines for new device and follow up discussed. Patient's apnea severity and rationale for treatment to reduce apnea, improve sleep quality and reduce cardiovascular and cerebrovascular events was reviewed. I also reviewed the benefit of consistent device use of CPAP for depression, anxiety and RLS. 2. Obesity, unspecified. Currently patients BMI is 37.8. Obesity increases the risk of apnea, CPAP pressure requirements and overall health risks especially cardiovascular and diabetes. Thus patient is advised to lose weight. * Change auto CPAP pressure to 8-9.6 cmH2O * Prescription for travel CPAP * Update machine * Updates supplies * Notify me if snoring with mask or feeling that the pressure is too much or too little * Attempt to lose weight * Call this office if any problems using CPAP * Return for follow up one month after obtaining new machine, or sooner if concerns arise Counseling Topics: Spare mask, Weight loss health impact Visit Type: In Office Time Spent with Patient (minutes): 24 Provider Statement: I spent 100% of the Face to Face Visit with the patient with greater than 50% spent counseling the patient and coordination of care.
== END 2022-12-11 09:26 | disposition home or self-care (01) ==
LOC: SC 09:25
PROVIDERS: ATTEND Nurse Practitioner Family
DX: G47.33 Obstructive sleep apnea (adult) (pediatric) (principal); E66.9 Obesity, unspecified; Z68.37 Body mass index [BMI] 37.0-37.9, adult
CPT/HCPCS: 99212; 99213

== ENCOUNTER 2023-12-24 09:44 | Outpatient (CLI) | payer OTHER ==
--- NOTE | 2023-12-24 10:17 | Sleep Patient Instructions ---
Sleep Center Visit Summary - Patient Visit Information Reason for Visit: Annual Followup - Patient Instructions Additional Instructions: You will continue with CPAP therapy with pressure set at 8-9.6 cmH2O. A supply prescription will be updated with your DME. I have added to update your CPAP. Please call once you have the new machine to set up compliance followup. We encourage you to continue to try to lose weight. Please follow up with the sleep care office one month after obtaining new CPAP. - Clinic Information Contact: [facility] [address] [place] [email or web address] T: [phone]
--- NOTE | 2023-12-24 10:20 | SLEEP CARE CONSULTATION ---
Information from patient questionnaire entered by Nichelle Bland. I have reviewed and concur with the information entered by Nichelle Bland. This document represents the service I personally performed and the decisions made by , Sera Olguin ARNP. History of Present Illness Service Date and Time: 12/24/2023 0944 Previous diagnosis: Mild, Obstructive Sleep Apnea-Hypopnea Syndrome AHI: 6 (in 2013) Reason for follow up: annual (LAST SEEN 11/2022) Equipment type: CPAP (RESMED Airsense 10 s/u 12/2017) Equipment obtained from: Other ([employer] - getting supplies as needed) Mask style: Nasal pillows Backup mask available: Yes Last cushion change: last weekend Prior sleep studies: Yes Year and Where: [address] [place] [address] HPI additional information: DOMINIQUE RAMOS was diagnosed to have mild, AHI 6, obstructive sleep apnea-hypopnea syndrome and returned today for CPAP therapy annual follow-up. Sleep Study - Results Prior sleep studies: Yes Year and Where: [address] [place] [address] CPAP Compliance Data - Data Reviewed with Patient Average duration of nightly device use: 7 HRS 18 MINS Compliance rate %: 94 (12/22/22-12/21/23; 349/365 days used) Current pressure setting (cmH2O): 8-9.6 Average residual AHI: 3.1 Central apnea: 1.9 Obstructive apnea: 0.7 Average large leak: 7.4 L/min Subjective Missed days of use due to: reports: illness (covid and flu) Patient concerns: denies: aerophagia, mask discomfort, air blowing in eyes, mask leak noise, condensation in mask/hose, nasal congestion, dry mouth, nose, throat, epistaxis Observed to snore while using device: No Current pressure setting perceived as: comfortable On therapy, patient: reports: sleeping better, awakening more refreshed, being more awake and alert during the day, more rested overall. denies: drowsiness while driving Initial [place] Sleepiness Scale score: 9 (in 2017) Current [place] Sleepiness Scale score: 4 (12/24/23) Allergies and Home Medications Known drug allergies: No Drug allergies reviewed: Yes Home medication list reviewed: Yes (no changes) Allergy and home medication list: Allergies No Known Drug Allergies Allergy (Verified 12/22/23 10:17) Review of Systems Review of systems same as previous: Yes (NO CHANGE) Physical Exam Vital signs obtained and entered by: NICHELLE Walsh MA Blood Pressure: 145/94 (LEFT ARM) Cuff size: regular Heart Rate: 53 O2 Saturation: 97 Height: 5 ft 5 in Weight: 224 lb 8 oz Weight change since last visit: 3 lb loss Body Mass Index: 37.3 BMI Classification: Obese Impression and Plan 1. Obstructive Sleep Apnea-Hypopnea Syndrome, mild, with good treatment compliance and good apnea control. On CPAP therapy, the patient has better sleep quality and is more rested overall. He has significant improvement of his sleep apnea and is satisfied with current therapy. He has not concerns or complaints with using his machine. He has a [employer]Med Airsense 10 that was last updated in 12/2017. The patients CPAP is over 5 years old and of reasonable use. Thus, the CPAP will be updated. A DWO prescription will be made. Compliance guidelines for new device and follow up discussed. Patient's apnea severity and rationale for treatment to reduce apnea, improve sleep quality and reduce cardiovascular and cerebrovascular events was reviewed. I also reviewed the benefit of consistent device use of CPAP for depression/anxiety and RLS. 2. Obesity, unspecified. Currently patients BMI is 37.3. He has lost weight. Obesity increases the risk of apnea, CPAP pressure requirements and overall health risks especially cardiovascular and diabetes. Thus patient is advised to continue to try to lose weight. * Continue auto CPAP pressure at 8-9.6 cmH2O * Update machine * Update supply prescription * Notify me if snoring with mask or feeling that the pressure is too much or too little * Attempt to lose weight * Call this office if any problems using CPAP * Return for follow up one month after obtaining new device, or sooner if concerns arise Counseling Topics: Spare mask, Weight loss health impact Prescriptions: Auto CPAP, Device supplies Follow up with Sleep Care in: other (compliance follow up) Visit Type: In Office Time Spent with Patient (minutes): 20 Provider Statement: I spent 100% of the Face to Face Visit with the patient with greater than 50% spent counseling the patient and coordination of care.
[2023-12-24 10:21] VITALS: BP 145/94; O2SAT 97
== END 2023-12-24 09:45 | disposition home or self-care (01) ==
LOC: SC 09:44
PROVIDERS: ATTEND Nurse Practitioner Family
DX: G47.33 Obstructive sleep apnea (adult) (pediatric) (principal); E66.9 Obesity, unspecified; Z68.37 Body mass index [BMI] 37.0-37.9, adult
CPT/HCPCS: 99212; 99213

== ENCOUNTER 2024-05-09 19:39 | Emergency (ER) | payer OTHER ==
[2024-05-09 19:58] VITALS: BP 131/65; O2SAT 97
--- NOTE | 2024-05-09 20:54 | ED Physician Documentation ---
PD HPI SKIN - Stated complaint Stated Complaint: R FINGER LAC - Chief complaint Chief Complaint: Laceration - Additional information Additional information: 44-year-old male with history of sleep apnea with CPAP use, GERD no blood thinners presents emergency department for left pinky finger bleeding. Patient says that he had something that appeared to be a blood blister about a week ago with no known trauma that he is aware of today the blister somehow got caught on something and ripped the top portion of it off he has been having a hard time getting the bleeding under control he put some powder on it today to help with the bleeding which significantly slowed it down but he wanted to have it evaluated by provider for further evaluation. No blood thinners no blood clotting disorders. At the tip of the finger the bleeding site is about 2 cm PD PAST MEDICAL HISTORY - Past Medical History Past Medical History: Yes Cardiovascular: None Respiratory: Sleep apnea, CPAP use Neuro: None Endocrine/Autoimmune: None GI: GERD : None HEENT: None Psych: Depression Musculoskeletal: Other Derm: None - Past Surgical History Past Surgical History: Yes General: Cholecystectomy Ortho: Carpal Tunnel surgery - Present Medications Home Medications: Ambulatory Orders Medication Instructions Recorded Confirmed Gabapentin [Neurontin] 300 mg PO DAILY 05/09/24 buPROPion [Wellbutrin Xl] 150 mg PO DAILY 05/09/24 rOPINIRole [Requip] 3 mg PO DAILY 05/09/24 - Allergies Allergies/Adverse Reactions: Allergies Allergy/AdvReac Type Severity Reaction Status Date / Time No Known Drug Allergies Allergy Verified 05/09/24 19:50 - Social History Does the pt smoke?: No Smoking Status: Never smoker Does the pt drink ETOH?: No Does the pt have substance abuse?: No - Immunizations Immunizations are current?: Yes - POLST Patient has POLST: No PD ED PE NORMAL - Vitals Vital signs reviewed: Yes - General General: Alert and oriented X 3, No acute distress, Well developed/nourished - Free text exam Free text exam: Right fifth finger/pinky finger: Full range of motion no fingernail involvement. 2 mm bleeding wound no erythema at the site no purulent drainage full range of motion. Results - Vitals Vitals: Vital Signs - 24 hr 05/09/24 19:44 Temperature 36.6 C Heart Rate 67 Respiratory 17 Rate Blood Pressure 131/65 H O2 Saturation 97 Oxygen O2 Source Room air PD Medical Decision Making - ED course ED course: 44-year-old male presents emergency department for a 2 mm wound that he is having a hard time stopping bleeding at home. Patient says that he has taken the bandage off multiple times to check for the bleeding and is continued to bleed. We put a finger tourniquet on his finger were able to get the bleeding to almost entirely stopped placing bacitracin over the wound and applied a pressure dressing over his finger and he was told to not remove the dressing for about 24 hours unless he is [place] any sort of circulatory issues or concerns. It does not appear to have any signs or symptoms of infection no drainage that appears to be yellow or purulent, finger is not swollen no erythema. He is taught signs and symptoms of infection to watch out for return precautions given all questions answered patient safe for discharge at this time. Departure - Departure Disposition: 01 Home, Self Care Clinical Impression: Blood blister Instructions: Infec Wound Recognize Tx Comments: Thank you for trusting us with your care. It appears that you had a blood blister That got deroofed. We have placed a finger tourniquet on for about 20 to 30 minutes to help with bleeding and applied a pressure dressing over your finger. Do not remove this dressing for 24 hours. Keep an eye out for signs and symptoms of infection which include fevers chills swelling of the finger pain that is getting worse instead of better or streaking that is going up your hand. Please have a low threshold to come back to the ER if you are starting to notice any signs or symptoms of infection or follow-up with your primary care provider. Forms: PCP List Discharge Date/Time: 05/09/24 21:36
[2024-05-09] MEDS: BACITRACIN ZINC OINT 1 PACKET TOP STA (21:07)
== END 2024-05-09 21:36 | disposition home or self-care (01) ==
LOC: ED 19:39
DX: R23.8 Other skin changes (principal); G47.30 Sleep apnea, unspecified
CPT/HCPCS: 99283; A9270